=== PATIENT | female | born 1970 | race Caucasian/White ===

== ENCOUNTER → 2016-09-06 | Outpatient (CLI) | payer OTHER ==
[2016-09-06 10:02] LABS: CH 33.2; CHCM 34.5; HCT 43.1 % (34.0-46.0); HDW 2.06; HGB 14.3 gm/dL (11.4-16.0); MCHC 33.2 g/dL (31.0-37.0); MCV 96.5 fL (80.0-100.0); Mean Platelet Volume 6.5; RBC 4.47 m/uL (3.80-5.40); RDW 12.2 % (11.5-15.5)
[2016-09-06 10:10] LABS: Anion Gap 11 mmol/L; Blood Urea Nitrogen 11 mg/dL (7-17); Carbon Dioxide 29 mmol/L (22-30); Chloride 96 mmol/L (98-107); Non-African American GFR(MDRD) >60 (>60 ml/min/1.73 sqM); Potassium 4.1 mmol/L (3.5-5.1); Sodium 136 mmol/L (137-145)
== END | disposition home or self-care (01) ==
LOC: LABWHC1 09:15
PROVIDERS: ATTEND Internal Medicine Interventional Cardiology
DX: Z01.812 Encounter for preprocedural laboratory examination (principal); I73.9 Peripheral vascular disease, unspecified
CPT/HCPCS: 36415; 80051; 82565; 84520; 85027

== ENCOUNTER 2016-09-07 10:27 | Day surgery (SDC) | payer OTHER ==
[2016-09-05 09:39] VITALS: BMI 26.8
[~2016-09-07 10:27] MED LIST: ALPRAZolam 0.25 MG TAB PO PRN; ALPRAZolam 0.5 MG TAB PO PRN; ASPIRIN 325 MG TAB PO STA; SODIUM CHLORIDE 0.9% 1,000 ML in EMPTY BAG 1 BAG IV ONE
[2016-09-07] MEDS ORDERED: ASPIRIN 81 MG CHEW PO ONE (10:53)
[2016-09-07] MEDS ORDERED: ASPIRIN 81 MG CHEW ONE (10:53)
[2016-09-07] MEDS ORDERED: niCARdipine 25 MG/10 ML VIAL ONE (13:35)
[2016-09-07] MEDS ORDERED: LIDOCAINE 2% INJ 20 MG/ML SQ ONE (13:57)
[2016-09-07] MEDS ORDERED: MIDAZOLAM 2 MG/2 ML VIAL IV ONE (13:57)
[2016-09-07] MEDS: fentaNYL (PF) 50 MCG/ML 2 ML AMP IV ONE ×2 (13:57→14:38)
[2016-09-07] MEDS: HEPARIN SODIUM 1,000 UNIT/ML VIAL IV ONE ×2 (14:01→15:59)
[2016-09-07] MEDS: MIDAZOLAM 2 MG/2 ML VIAL IV ONE ×2 (14:38→15:14)
[2016-09-07] MEDS ORDERED: KETOROLAC 30 MG/ML 1 ML VIAL IVP STA (16:17)
[2016-09-07] MEDS ORDERED: SODIUM CHLORIDE 0.9% 1,000 ML IV ONE (16:21)
[2016-09-07] MEDS ORDERED: KETOROLAC 30 MG/ML 1 ML VIAL IVP ONE (16:28)
[2016-09-07] MEDS ORDERED: NICOTINE 21MG/24HR PATCH TRANSDERM PRN (17:03)
[2016-09-07] MEDS ORDERED: ALBUTEROL NEBULIZED 2.5 MG/3 ML INHALATION PRN (17:03)
[2016-09-07] MEDS ORDERED: NITROGLYCERIN SL TABS 0.4 MG TAB SUBLINGUAL PRN (17:03)
[2016-09-07] MEDS ORDERED: CLOPIDOGREL 75 MG TAB PO ONE (17:09)
[2016-09-07] MEDS ORDERED: IODIXANOL 320 MG/ML 100 ML INTRAARTER ONE (17:09)
[2016-09-07] MEDS ORDERED: PROTAMINE SULFATE 10 MG/ML 5 ML VIAL IV ONE (17:09)
[2016-09-07] MEDS ORDERED: CHOLINE PO SCH (18:00)
[2016-09-07] MEDS ORDERED: SODIUM CHLORIDE 0.9% 1,000 ML IV SCH (19:15)
[2016-09-07] MEDS ORDERED: ATORVASTATIN 80 MG TAB PO SCH (21:00)
[2016-09-07] MEDS ORDERED: METOPROLOL TARTRATE 50 MG TAB PO SCH (21:00)
[2016-09-07] MEDS ORDERED: NON-FORMULARY DRUG (Fish Oil/Dha/Epa [Fish Oil 1,200 Mg Fish Oil] 1 EACH) PO SCH (21:00)
[2016-09-07] MEDS ORDERED: Acetaminophen-Codeine 300-30mg TAB PO PRN ×2 (21:26)
[2016-09-07] MEDS: SYMBICORT 160-4.5 MCG INHALER INHALATION SCH (21:45)
[2016-09-07] MEDS ORDERED: AMITRIPTYLINE HCL 10 MG TAB PO SCH ×2 (22:00)
[2016-09-07 23:02] VITALS: RESP 18
[2016-09-08] MEDS ORDERED: Acetaminophen-Codeine 300-30mg TAB PO PRN (02:00)
[2016-09-08 06:12] LABS: Basophils % (A) 0 %; CH 32.4; CHCM 33.3; Eosinophils # (A) 0.1 k/uL (0-0.7); Eosinophils % (A) 1 %; HCT 38.3 % (34.0-46.0); HDW 2.01; HGB 12.4 gm/dL (11.4-16.0); Luc # (Auto) 0.12; Luc % (Auto) 2; Lymphocytes # (A) 1.8 k/uL (1.0-4.8); Lymphocytes % (A) 25 %; MCH 31.5 pg (25.0-35.0); MCHC 32.3 g/dL (31.0-37.0); MCV 97.6 fL (80.0-100.0); Mean Platelet Volume 6.8; Monocytes # (A) 0.4 k/uL (0-1.0); Monocytes % (A) 6 %; Neutrophils # (A) 4.8 k/uL (1.3-7.7); Neutrophils % (A) 66 %; RBC 3.92 m/uL (3.80-5.40); RDW 12.3 % (11.5-15.5); WBC 7.3 k/uL (3.8-10.6); WBC (Perox) 7.74
[2016-09-08 06:26] LABS: Anion Gap 6 mmol/L; Blood Urea Nitrogen 15 mg/dL (7-17); Calcium 9.1 mg/dL (8.4-10.2); Carbon Dioxide 28 mmol/L (22-30); Chloride 103 mmol/L (98-107); Glucose 92 mg/dL (74-99); Non-African American GFR(MDRD) >60 (>60 ml/min/1.73 sqM); Sodium 137 mmol/L (137-145)
[2016-09-08 06:34] VITALS: TEMP 97.1
[2016-09-08] MEDS ORDERED: PANTOPRAZOLE 40 MG TABLET PO SCH (07:30)
--- NOTE | 2016-09-08 07:38 | LTR ---
September 07, 2016 RE: Samantha Pinedo Dear Dr. Marks: Ms. Samantha Pinedo underwent successful stenting of the right and left common iliac arteries with a good angiographic result and without any complication. I want to thank you for allowing me to participate in her care. Please do not hesitate to call if you have any question or concerns. Sincerely, IMELDA LOMBARDI MD
--- NOTE | 2016-09-08 08:01 | PCN ---
DATE OF PROCEDURE: 09/07/2016 PERCUTANEOUS PERIPHERAL INTERVENTION PERFORMING PHYSICIAN: Ruben Vega MD, olive packer. PROCEDURE PERFORMED: 1. Selective bilateral common iliac artery angiogram. 2. 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 3. Successful kissing stents of bilateral common iliac arteries using on the right side two 6.0 x 39 balloon expandable stent and on the left side 6.0 x 59 balloon expandable stent as well with good angiographic results. 4. Selective bilateral common femoral arteries angiogram. INDICATION: This is a pleasant 45-year-old female patient who is known to have coronary artery disease and prior coronary artery stenting who was also experiencing bilateral lower extremity discomfort consistent with intermittent claudication. She underwent a peripheral angiogram which showed occluded right common iliac artery and critical left common iliac artery. I discussed with her the option between surgical versus percutaneous revascularization and she would like to proceed with percutaneous revascularization. APPROACH: Right and left common femoral arteries. COMPLICATIONS: None. LEVEL OF SEDATION: Moderate with a sedation length of 3 hours and 2 minutes. PROCEDURE DESCRIPTION: After obtaining an informed consent, the patient was brought to the cardiac farm laborer. Right common femoral artery was cannulated using micropuncture technique. The micropuncture wire passed easily, then I placed a 5 Portuguese 23 cm Brite tip sheath in the right common femoral artery. At the left common femoral artery, I did place using percutaneous technique as well a 6 Portuguese 23 cm Brite tip sheath as well. At that point, anticoagulation was initiated using heparin and the patient was given a weight-based heparin. After that, I was able to cross the critical lesion involving the left common iliac artery using an 0.035 Glidewire. I attempted crossing the LONGWALL HEADGATE OPERATOR of the right common iliac artery using an 0.014 Astato wire and I was unable to then using an 0.018 V18 wire, and I was unable to and then using an 0.035 Glidewire, and I was unable to where I ended in the subintimal space. 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 At that point, I was able to advance the Glidewire all the way to the common femoral artery. Then I did advance an 0.035 catheter, and I did inject it to prove that I was in the true lumen. After that, I did balloon angioplasty from the left side of the right common iliac artery using a 4.0 balloon. I tried again to advance 0.035 Glidewire in retrograde fashion from the right side and I was unable to do it. At that point, I decided to go ahead and snare a wire placed in the sheath on the left side from the right groin. I was able to snare an 0.018 Victory 18 wire. After that, I did advance an 0.035 catheter over Victory 18 wire and then I was able to redirect my wire into true lumen to the aorta. After that, I did deploy 2 balloon expandable stents on the right and one balloon expandable stent on the left. On the right, I did deploy 6.0 x 39 and another 6.0 x 39 balloon expandable stents. On the left side, I did deploy 6.0 x 59 mm balloon expandable stent. The following angiogram showed good angiographic results. Subsequently, I did exchange my 23 cm Brite tip sheath into 11 cm regular sheath using about 0.035 advantage wire. I did finally selective bilateral common femoral artery angiogram. The patient still has moderate to severe lesion involving the right external iliac artery and just by the inguinal ligament. I would wait and see if her symptoms will improve, then there is no need for any to be done. The patient tolerated the procedure very well. POSTPROCEDURE MANAGEMENT: 1. Dual antiplatelet therapy. 2. Risk factor modifications. 3. Smoking cessation and the patient stop smoking completely. 4. Follow up with the patient.
[2016-09-08] MEDS ORDERED: RX INFO: IV CONTRAST WAS GIVEN 1 EACH MISC MISCELLANE PRN (08:31)
[2016-09-08] MEDS ORDERED: LISINOPRIL 10 MG TAB PO SCH (09:00)
[2016-09-08] MEDS ORDERED: NON-FORMULARY DRUG (Lisdexamfetamine Dimesylate [Vyvanse] 50 MG) PO SCH (09:00)
[2016-09-08] MEDS ORDERED: ECHINACEA 400 MG PO SCH (09:00)
[2016-09-08] MEDS ORDERED: METOPROLOL TARTRATE 25 MG TAB PO SCH (09:00)
[2016-09-08] MEDS ORDERED: NON-FORMULARY DRUG (Ascorbic Acid [Vitamin C] 1,000 MG) PO SCH (09:00)
[2016-09-08] MEDS ORDERED: ASPIRIN 81 MG CHEW PO SCH (09:00)
[2016-09-08] MEDS ORDERED: CHOLECALCIFEROL 1,000 UNIT TAB PO SCH (09:00)
[2016-09-08] MEDS ORDERED: CHLORTHALIDONE 25 MG TAB PO SCH (09:00)
[2016-09-08] MEDS ORDERED: CLOPIDOGREL 75 MG TAB PO SCH ×2 (09:00→21:00)
[2016-09-08] MEDS: SYMBICORT 160-4.5 MCG INHALER INHALATION SCH ×2 (09:09→10:32)
--- NOTE | 2016-09-08 09:30 | CT ---
EXAMINATION TYPE: CT angio abdomen pelvis DATE OF EXAM: 09/08/2016 9:17 AM COMPARISON: NONE HISTORY: Pain post blilateral iliac stents CT DLP: 1327.5 mGycm CONTRAST: CTA abdominal aorta with 3-D reconstruction is performed without Oral Contrast and with IV Contrast, patient injected with 100 mL of Omnipaque 350. Contrast CTA of the abdominal aorta was performed from the lung bases through the base of the pelvis . 3-D reconstruction imaging obtained at a separate workstation. CONTRAST CT ABDOMEN AND PELVIS ABDOMENAL AORTA: No evidence for abdominal aortic aneurysm. No dissection. Bilateral common iliac st ents are in place both of which appear to be patent. There is appropriate opacification of the internet consultant al and external iliac arteries as well as the proximal common femoral arteries. No stenosis appreciat ed within the [id number]. Mild atheromatous change distal abdominal aorta. Aortic branch vessels a re patent. Lung bases: Linear basilar atelectasis or scarring. LIVER/GB-1.1 cm cyst right hepatic lobe. Gallbladder is unremarkable. PANCREAS- No significant abnormality is seen. SPLEEN- No significant abnormality is seen. ADRENALS-hyperplasia is seen of the adrenals. KIDNEYS/BLADDER- No significant abnormality is seen. BOWEL- No Significant abnormality GENITAL ORGANS: No gross abnormality seen. LYMPH NODES- No greater than 1cm abdominal or pelvic lymph nodes areappreciated. OSSEOUS STRUCTURES- No significant abnormality is seen. OTHER- No significant abnormality is seen. IMPRESSION- Bilateral common iliac stents are in place both of which appear to be patent. There is appropriate o pacification of the internal and external iliac arteries as well as the proximal common femoral arter ies. No stenosis appreciated within the [id number].
[2016-09-08] MEDS ORDERED: MULTIVITAMINS, THERA 1 EACH TAB PO SCH (12:00)
[2016-09-08 14:20] VITALS: BP 111/69; PULSE 92
--- NOTE | 2016-09-08 15:03 | IR ---
EXAMINATION TYPE: IR stent intravas non coronary DATE OF EXAM: 09/07/2016 5:32 PM COMPARISON: NONE HISTORY: Peripheral vascular occlusive disease. Fluoroscopy was provided to the referring clinician. See dictated report from cardiology.
--- NOTE | 2016-09-09 09:46 | DS ---
DATE OF ADMISSION: 09/07/2016 DATE OF DISCHARGE: 09/08/2016 BRIEF HISTORY: This is a pleasant 45-year-old female patient who is known to have severe underlying PAD with occluded bilateral common iliac arteries who was admitted to the hospital on September 07, 2016 and underwent successful recanalization of both iliac arteries with a good angiographic result and without any complication from bilateral groin approach. The procedure was performed with a good angiographic result and without any complication. On follow up with the patient both the groins seem to be soft and nontender and without any bruises. The patient is going to be discharged home on dual antiplatelet therapy and I will follow up with the patient as an outpatient in the office.
== END 2016-09-08 15:32 | disposition home or self-care (01) ==
LOC: CATHCVL 10:27 → 6SEL 16:58 → CATHCVL 09-08 15:32
PROVIDERS: ATTEND Internal Medicine Interventional Cardiology
DX: I70.211 Atherosclerosis of native arteries of extremities with intermittent claudication, right leg (principal); I10 Essential (primary) hypertension; E78.5 Hyperlipidemia, unspecified; Z82.49 Family history of ischemic heart disease and other diseases of the circulatory system; I25.10 Atherosclerotic heart disease of native coronary artery without angina pectoris; Z95.5 Presence of coronary angioplasty implant and graft; Z87.891 Personal history of nicotine dependence; Z79.02 Long term (current) use of antithrombotics/antiplatelets; Z79.82 Long term (current) use of aspirin; Z79.51 Long term (current) use of inhaled steroids; Z79.899 Other long term (current) drug therapy; Z88.1 Allergy status to other antibiotic agents; Z88.0 Allergy status to penicillin; Z88.8 Allergy status to other drugs, medicaments and biological substances
CPT/HCPCS: 99153 ×11; 99152; 94640 ×2; 37221; 85347; 80048; 85025; 81025; 74174; C1769 ×7; C1894 ×2; C1876; C1887; C1874; J2001; J2250; J2720; Q9967 ×2; J3010; J1885; J1644; 37223

== ENCOUNTER → 2016-10-05 | Outpatient (CLI) | payer OTHER ==
--- NOTE | 2016-10-05 17:22 | US ---
EXAMINATION TYPE: US thyroid st tissue head/neck DATE OF EXAM: 10/05/2016 COMPARISON: NONE CLINICAL HISTORY: Goiter E04.9. Thyroid US 20 years ago, recently changed doctors, follow up exam GLAND SIZE: Right Lobe: 4.6 x 1.2 x 1.8 cm Overall Parenchyma: homogenous Left Lobe: 4.2 x 1.3 x 1.5 cm Overall Parenchyma: homogeneous Isthmus Thickness: 0.4 cm NODULES RIGHT: # of nodules measured on right: 0 LEFT: # of nodules measured on left: 0 ISTHMUS: # of nodules measured in the isthmus: 0 Bilateral neck scanned, no evidence of lymphadenopathy. IMPRESSION: BORDERLINE THYROMEGALY.
== END | disposition home or self-care (01) ==
LOC: RADUSWWP 15:48
PROVIDERS: ATTEND Family Medicine
DX: E01.0 Iodine-deficiency related diffuse (endemic) goiter (principal)
CPT/HCPCS: 76536

== ENCOUNTER → 2019-04-09 | Outpatient (CLI) | payer OTHER ==
[2019-04-09 12:23] LABS: HCT 44.5 % (34.0-46.0); HGB 14.9 gm/dL (11.4-16.0); MCHC 33.6 g/dL (31.0-37.0); MCV 95.2 fL (80.0-100.0); Mean Platelet Volume 8.3; Platelet Count 348 k/uL (150-450); RBC 4.67 m/uL (3.80-5.40); RDW 12.7 % (11.5-15.5); WBC 10.2 k/uL (3.8-10.6)
[2019-04-09 12:28] LABS: African American GFR (CKD) >90 (>60 ml/min/1.73 sqM); Anion Gap 10 mmol/L; Blood Urea Nitrogen 9 mg/dL (7-17); Carbon Dioxide 24 mmol/L (22-30); Chloride 107 mmol/L (98-107); Non-African American GFR(CKD) >90 (>60 ml/min/1.73 sqM); Potassium 4.2 mmol/L (3.5-5.1); Sodium 141 mmol/L (137-145)
== END | disposition home or self-care (01) ==
LOC: LABPAT 12:00
PROVIDERS: ATTEND Internal Medicine Interventional Cardiology
DX: Z01.812 Encounter for preprocedural laboratory examination (principal); I70.213 Atherosclerosis of native arteries of extremities with intermittent claudication, bilateral legs
CPT/HCPCS: 36415; 80051; 82565; 84520; 85027

== ENCOUNTER → 2019-04-12 | Day surgery (SDC) | payer OTHER ==
[2019-04-08 16:01] VITALS: BMI 26.0
[~2019-04-12] MED LIST changes: -ALPRAZolam 0.5 MG TAB PO PRN; +ASPIRIN 325 MG TAB PO ONE; -ASPIRIN 325 MG TAB PO STA; +HEPARIN SODIUM 1,000 UN/ML (10ML VL) IV ONE; +HYDROmorphone 1 MG/ML 1 ML SYRINGE IVP ONE; +IOPAMIDOL-300 100ML BTL INJ ONE; +IOPAMIDOL-300 50ML BTL INJ ONE; +LIDOCAINE 1% INJ 10MG/ML (20 ML MDV) SQ ONE; +MIDAZOLAM 2 MG/2 ML VIAL IVP ONE; +SODIUM CHLORIDE 0.9% 1,000 ML IV SCH; +VERAPAMIL SYRINGE (5 MG/10 ML) INTRAARTER ONE
[2019-04-12 07:09] VITALS: RESP 18; TEMP 98
--- NOTE | 2019-04-12 08:33 | AN ---
ANGIOGRAPHY REPORT ABDOMINAL AORTOGRAM AND BILATERAL LOWER EXTREMITIES RUNOFF: PERFORMING PHYSICIAN: Ruben Veag MD. PROCEDURE PERFORMED: 1. Abdominal aortogram. 2. Bilateral lower extremities runoff. INDICATION: This is a 48-year-old female patient with coronary artery disease and prior stenting as well as peripheral arterial disease and prior bilateral iliac stenting was seen in the office recently where she was experiencing bilateral lower extremities intermittent claudication, mainly in the buttock area. On physical examination, I could not feel any femoral pulses bilaterally. She was brought today to undergo an aortogram with runoff. APPROACH: Right radial artery. COMPLICATION: None. LEVEL OF SEDATION: Moderate with sedation length of 16 minutes. PROCEDURE DESCRIPTION: After obtaining an informed consent, the patient was brought to the cardiac open hearth furnace laborer. The right radial artery was cannulated using micropuncture technique, the micropuncture wire passed easily, then I placed a 5-Mongolian sheath. I gave the patient 2 mg of verapamil IA and 8000 units of heparin IV. Subsequently, I did an abdominal aortogram and bilateral lower extremities runoff using 5-Mongolian pigtail catheter which was initially placed at the level of the renal arteries, then it was advanced into above the bifurcation of the aorta to right and left common iliac artery. The procedure was completed without any complication. SELECTIVE PERIPHERAL ANGIOGRAM: 1. The aorta appeared to have mild disease only. 2. Renal arteries: The right and left renal arteries appeared to be patent. 3. Common iliac arteries: The right and left common iliac arteries are stented and both the stents are occluded. 4. Internal iliac arteries: Both internal iliac arteries appeared to be patent. 5. External iliac arteries: Both external iliac arteries appeared to be diseased. 6. Femoral arteries: Both femoral arteries appeared to be patent. 7. Profunda: Both profunda appeared to be patent. 8. SFA: Both SFA appeared to be patent. 9. Popliteal: Both popliteal appeared to be patent. 10.Below the knee: There are 2 vessel runoff below the knee with anterior tibial, posterior tibial and peroneal and the anterior tibial was not well opacified. CONCLUSION: 1. Severe aortoiliac disease with occluded bilateral common iliac arteries, which seem to be in-stent occlusion. 2. Mild femoral-popliteal disease. 3. Two vessel runoff below the knee bilaterally with posterior tibial and peroneal. POSTPROCEDURE MANAGEMENT: 1. The patient is going to be discharged home today. 2. I will discuss with the patient the option between either percutaneous revascularization or surgical revascularization with aortobifemoral. MICHAEL / PAMELAN: [id number] /
--- NOTE | 2019-04-12 10:15 | IR ---
EXAMINATION TYPE: IR angio abdominal w runoff DATE OF EXAM: 04/12/2019 CLINICAL HISTORY: Peripheral vascular disease. Leg pain. TECHNIQUE: Fluoroscopy. COMPARISON: None. FINDINGS: Fluoroscopic guidance was provided during abdominal angiogram with lower extremity runoff procedure performed by Dr. Vega. A total of 1.8 minutes of fluoroscopic time was utilized during the procedure and 6 cine runs are acquired. Images acquired show access via right upper extremity with c ontrast injection of aorta and iliac vessels as well as lower extremity vessels. Please refer to proc edure note. IMPRESSION: As Above.
[2019-04-12 13:09] VITALS: BP 118/76; PULSE 76
== END ==
LOC: CATHCVL 06:35
PROVIDERS: ATTEND Internal Medicine Interventional Cardiology
DX: I70.213 Atherosclerosis of native arteries of extremities with intermittent claudication, bilateral legs (principal); T82.856A Stenosis of peripheral vascular stent, initial encounter; I25.10 Atherosclerotic heart disease of native coronary artery without angina pectoris; I10 Essential (primary) hypertension; E78.5 Hyperlipidemia, unspecified; F17.210 Nicotine dependence, cigarettes, uncomplicated; Z79.82 Long term (current) use of aspirin; Z79.51 Long term (current) use of inhaled steroids; Z79.899 Other long term (current) drug therapy; Z88.0 Allergy status to penicillin; Z88.1 Allergy status to other antibiotic agents; Z88.8 Allergy status to other drugs, medicaments and biological substances; Z95.5 Presence of coronary angioplasty implant and graft; Z82.49 Family history of ischemic heart disease and other diseases of the circulatory system; Y83.9 Surgical procedure, unspecified as the cause of abnormal reaction of the patient, or of later complication, without mention of misadventure at the time of the procedure
CPT/HCPCS: 36200; 75625; 75716; 81025; C1769 ×3; J2250; J2001; J1644; J1170; Q9967 ×2

== ENCOUNTER → 2019-04-22 | Outpatient (CLI) | payer OTHER ==
[2019-04-22 16:02] LABS: Chol/HDL Ratio 2.27; LDL Cholesterol,Calculated 74.6 mg/dL (0.0-131.0); VLDL Calculation 18.4 mg/dL (5.00-40.00)
== END | disposition home or self-care (01) ==
LOC: LABWHC1 10:45
PROVIDERS: ATTEND Nurse Practitioner Adult Health
DX: E78.5 Hyperlipidemia, unspecified (principal)
CPT/HCPCS: 36415; 80061; 83721

== ENCOUNTER 2020-04-22 06:41 | Observation (INO) | payer OTHER ==
[2020-04-13 15:36] VITALS: BMI 25.8
[~2020-04-22 06:41] MED LIST changes: -ASPIRIN 325 MG TAB PO ONE; +ASPIRIN 325 MG TAB PO PRN; -HEPARIN SODIUM 1,000 UN/ML (10ML VL) IV ONE; -HYDROmorphone 1 MG/ML 1 ML SYRINGE IVP ONE; -IOPAMIDOL-300 100ML BTL INJ ONE; -IOPAMIDOL-300 50ML BTL INJ ONE; -LIDOCAINE 1% INJ 10MG/ML (20 ML MDV) SQ ONE; -MIDAZOLAM 2 MG/2 ML VIAL IVP ONE; -SODIUM CHLORIDE 0.9% 1,000 ML IV SCH; -VERAPAMIL SYRINGE (5 MG/10 ML) INTRAARTER ONE
[2020-04-22] MEDS ORDERED: SODIUM CHLORIDE 0.9% 1,000 ML IV ONE (07:05)
[2020-04-22 07:12] LABS: Glucose,Whole Blood 102 mg/dL (75-99)
[2020-04-22 07:17] LABS: Basophils # (A) 0.1 k/uL (0-0.2); Basophils % (A) 1 %; Eosinophils # (A) 0.3 k/uL (0-0.7); Eosinophils % (A) 3 %; HGB 14.6 gm/dL (11.4-16.0); Lymphocytes # (A) 3.8 k/uL (1.0-4.8); Lymphocytes % (A) 34 %; MCH 30.9 pg (25.0-35.0); MCHC 32.5 g/dL (31.0-37.0); MCV 95.2 fL (80.0-100.0); Mean Platelet Volume 7.4; Monocytes # (A) 0.5 k/uL (0-1.0); Monocytes % (A) 4 %; Neutrophils # (A) 6.1 k/uL (1.3-7.7); Neutrophils % (A) 56 %; Platelet Count 405 k/uL (150-450); RBC 4.72 m/uL (3.80-5.40); RDW 13.4 % (11.5-15.5)
[2020-04-22 07:23] LABS: African American GFR (CKD) >90 (>60 ml/min/1.73 sqM); Anion Gap 4 mmol/L; Blood Urea Nitrogen 17 mg/dL (7-17); Calcium 9.4 mg/dL (8.4-10.2); Carbon Dioxide 28 mmol/L (22-30); Chloride 108 mmol/L (98-107); Glucose 94 mg/dL (74-99); Non-African American GFR(CKD) >90 (>60 ml/min/1.73 sqM); Potassium 4.2 mmol/L (3.5-5.1); Sodium 140 mmol/L (137-145)
[2020-04-22] MEDS: MIDAZOLAM 2 MG/2 ML VIAL IVP ONE ×2 (08:02→08:11)
[2020-04-22] MEDS ORDERED: HYDROmorphone 1 MG/ML 1 ML SYRINGE IVP ONE (08:05)
[2020-04-22] MEDS ORDERED: LIDOCAINE 1% INJ 10MG/ML (20 ML MDV) SQ ONE (08:06)
[2020-04-22] MEDS: HEPARIN SODIUM 1,000 UN/ML (10ML VL) IV ONE ×2 (08:10→08:50)
[2020-04-22] MEDS: fentaNYL (PF) 50 MCG/ML 2 ML AMP IVP ONE ×3 (08:52→10:06)
[2020-04-22] MEDS ORDERED: NITROGLYCERIN 1000MCG/10ML SYRINGE INTRAARTER ONE (09:10)
[2020-04-22] MEDS ORDERED: IOPAMIDOL-250 100ML BTL INTRAARTER ONE (09:32)
[2020-04-22] MEDS ORDERED: IOPAMIDOL-250 50ML BTL INTRAARTER ONE (09:40)
[2020-04-22] MEDS ORDERED: CLOPIDOGREL 75 MG TAB PO ONE (10:06)
[2020-04-22] MEDS ORDERED: IOPAMIDOL-300 50ML BTL INJ ONE (10:06)
[2020-04-22] MEDS ORDERED: IBUPROFEN 800 MG TAB PO PRN (10:39)
[2020-04-22] MEDS ORDERED: NITROGLYCERIN SL TABS 0.4 MG TAB SUBLINGUAL PRN (10:39)
[2020-04-22] MEDS ORDERED: ALBUTEROL NEBULIZED 2.5 MG/3 ML INHALATION PRN (10:39)
[2020-04-22] MEDS ORDERED: SODIUM CHLORIDE 0.9% 1,000 ML in EMPTY BAG 1 BAG IV SCH (10:45)
[2020-04-22] MEDS ORDERED: ONDANSETRON 4 MG/2 ML VIAL ONE (11:52)
[2020-04-22] MEDS ORDERED: ACETAMINOPHEN TAB 325 MG TAB ONE (14:29)
[2020-04-22] MEDS ORDERED: ACETAMINOPHEN TAB 325 MG TAB PO PRN (14:31)
--- NOTE | 2020-04-22 15:02 | AN ---
ANGIOGRAPHY REPORT PERCUTANEOUS PERIPHERAL INTERVENTION: DATE OF SERVICE: April 22, 2020. PERFORMING PHYSICIAN: Ruben Vega MD. PROCEDURE PERFORMED: 1. Successful stenting of the right and left common iliac arteries using iCAST 7.0 x 59 mm with an excellent angiographic result. 2. Successful stenting of the right and left external iliac arteries using 8 x 60 mm self expandable stent with an excellent angiographic results. 3. Intravascular ultrasound (IVUS) of the bilateral common and external iliac arteries. 4. Selective angiogram of the bilateral common and external iliac arteries. 5. Right lower extremity angiogram. INDICATION: This is a pleasant 49-year-old female patient with coronary artery disease and peripheral arterial disease who underwent in the past stenting of the right and left common iliac arteries for chronic total occlusion and symptoms of intermittent claudication was experiencing symptoms of intermittent claudication again. She underwent an angiogram recently and that revealed occluded bilateral iliacs. She was brought today for intervention. APPROACH: Right and left common femoral arteries. COMPLICATION: None. LEVEL OF SEDATION: Moderate with sedation length of 155 minutes. PROCEDURE DESCRIPTION: After obtaining an informed consent, the patient was brought to the cardiac director of labor relations. The right and left common femoral arteries were cannulated using micropuncture technique under ultrasound guidance, the micropuncture wire passed easily then I placed a 4-Emirati sheath in the right and left common femoral arteries. At that point, anticoagulation was initiated using heparin and the patient was initially given a total of 6000 units of heparin IV with continuous ACT monitoring throughout the procedure. Please note that the patient given additional 2000 units of heparin because the ACT was around 190. Subsequently, I did cross the chronic total occlusion of the right and left common iliac arteries using a 0.035 stiff Glidewire with the backup support of 0.035 CXI catheter. I did inject contrast in the aorta through the catheter to prove that I was in the true lumen. Subsequently I did exchange my 0.035 wire into 0.014 wire preparing for intravascular ultrasound which revealed bilaterally that there was no component of thrombus with the diameter of the iliac about 7-8 mm. I did after that position my 0.035 wire in the aorta. I did after that exchange my 4- Emirati 11 cm sheath into 7-Emirati 21 cm sheath. Balloon angioplasty was achieved using 6 mm balloon. Subsequently, I placed 2 iCAST stents. Both of them were 7 x 59 mm. Both the stents were positioned in a kissing technique and deployed simultaneously. The following angiogram showed good angiographic results in the stented segment. In the external iliac arteries, distal to the stented segment, there was severe narrowing and because of that I decided to do balloon angioplasty. I did balloon angioplasty initially using 6 mm balloon. The initial angiogram looks good, but subsequently the artery again and because of that I decided to stent that segment. So on the left side, I placed 8 x 60 mm self- expandable stent and also on the right side 8 x 60 mm self-expandable stent. Both stents were overlapped with the previous balloon expandable stents. Final balloon angioplasty was achieved and showed excellent angiographic results. Because there was a component of thrombus on the right side, the patient was experiencing pain and because we did not feel good pulse on the right side, I decided to do a right lower extremity angiogram which showed good results. After that I did exchange my 7-Emirati 21 cm into 7-Emirati 11 cm. Finally, the procedure was completed without any complication. POSTPROCEDURE MANAGEMENT: 1. Smoking cessation. 2. Dual anti-platelet therapy. 3. Risk factor modifications. 4. Follow up with the patient. MMODL / IJN: [id number] /
[2020-04-22] MEDS ORDERED: ONDANSETRON 4 MG/2 ML VIAL IVP PRN (16:48)
[2020-04-22 18:19] LABS: Glucose,Whole Blood 95 mg/dL (75-99)
[2020-04-22] MEDS: SYMBICORT 80-4.5 MCG INHALER INHALATION SCH (20:15)
[2020-04-22] MEDS ORDERED: AMITRIPTYLINE HCL 10 MG TAB PO SCH (21:00)
[2020-04-22] MEDS ORDERED: NON FORMULARY DRUG (Fish Oil/Dha/Epa [Fish Oil 1,200 Mg Fish Oil] 1 EACH Capsule) PO SCH (21:00)
[2020-04-22] MEDS ORDERED: NON FORMULARY DRUG (Ubidecarenone [Co Q-10] 100 MG Capsule) PO SCH (21:00)
[2020-04-22] MEDS ORDERED: ATORVASTATIN 80 MG TAB PO SCH (21:00)
[2020-04-22] MEDS: METOPROLOL TARTRATE 25 MG TAB PO SCH (21:35)
[2020-04-23] MEDS: SYMBICORT 80-4.5 MCG INHALER INHALATION SCH (07:36)
[2020-04-23 08:45] VITALS: BP 147/84; PULSE 94; RESP 18; TEMP 98
[2020-04-23] MEDS ORDERED: ASCORBIC ACID 500 MG TAB PO SCH (09:00)
[2020-04-23] MEDS ORDERED: ASPIRIN 325 MG TAB PO SCH (09:00)
[2020-04-23] MEDS ORDERED: CHOLECALCIFEROL 1,000 UNIT TAB PO SCH (09:00)
[2020-04-23] MEDS ORDERED: LISDEXAMFETAMINE DIMESYLATE 50 MG PO SCH (09:00)
[2020-04-23] MEDS ORDERED: PANTOPRAZOLE 40 MG TABLET PO SCH (09:00)
[2020-04-23] MEDS ORDERED: NON FORMULARY DRUG (Turmeric Root Extract [Turmeric] 500 MG Capsule) PO SCH (09:00)
[2020-04-23] MEDS ORDERED: LACTOBACILLUS ACIDOPH & BULGAR 1 EACH PACKET PO SCH (09:00)
[2020-04-23] MEDS ORDERED: ECHINACEA 400 MG PO SCH (09:00)
[2020-04-23] MEDS ORDERED: lisinopriL 5 MG TAB PO SCH (09:00)
[2020-04-23] MEDS ORDERED: MULTIVITAMINS, THERA 1 EACH TAB PO SCH (09:00)
[2020-04-23 09:12] LABS: Basophils # (A) 0.1 k/uL (0-0.2); Basophils % (A) 0 %; Eosinophils # (A) 0.3 k/uL (0-0.7); Eosinophils % (A) 2 %; HCT 45.1 % (34.0-46.0); HGB 14.4 gm/dL (11.4-16.0); Lymphocytes % (A) 15 %; MCH 31.2 pg (25.0-35.0); MCV 97.4 fL (80.0-100.0); Mean Platelet Volume 7.3; Monocytes # (A) 0.8 k/uL (0-1.0); Monocytes % (A) 6 %; Neutrophils # (A) 10.5 k/uL (1.3-7.7); Neutrophils % (A) 77 %; Platelet Count 289 k/uL (150-450); RBC 4.63 m/uL (3.80-5.40); RDW 13.6 % (11.5-15.5); WBC 13.7 k/uL (3.8-10.6)
[2020-04-23] MEDS: METOPROLOL TARTRATE 25 MG TAB PO SCH (09:21)
[2020-04-23 09:36] LABS: African American GFR (CKD) >90 (>60 ml/min/1.73 sqM); Anion Gap 6 mmol/L; Blood Urea Nitrogen 9 mg/dL (7-17); Calcium 9.4 mg/dL (8.4-10.2); Carbon Dioxide 30 mmol/L (22-30); Chloride 105 mmol/L (98-107); Glucose 123 mg/dL (74-99); Non-African American GFR(CKD) >90 (>60 ml/min/1.73 sqM); Sodium 141 mmol/L (137-145)
--- NOTE | 2020-04-23 10:15 | IR ---
EXAMINATION TYPE: IR charter boat captain femoral popliteal DATE OF EXAM: 04/22/2020 COMPARISON: NONE HISTORY: Fluoroscopy time. Fluoroscopy was provided to the referring clinician.
--- NOTE | 2020-04-24 00:03 | DS ---
DISCHARGE SUMMARY BRIEF HISTORY: This is a very pleasant 49 year old female patient who underwent yesterday successful, chronic total occlusion of bilateral iliac arteries with excellent angiographic results and without any complications. The procedure was performed from the right and left groin. The patient was seen this morning. She does have excellent bilateral femoral pulses. Also palpable pedal pulses. She is going to be discharged home on dual anti-platelet therapy along with statin. I will follow up with the patient in a week in the office. MMELYSE / IJN: [id number] /
== END 2020-04-23 10:16 | disposition home or self-care (01) ==
LOC: CATHCVL 06:41 → 3SCARD 10:05 → CATHCVL 17:28
PROVIDERS: ADMIT Internal Medicine Interventional Cardiology; ATTEND Internal Medicine Interventional Cardiology
DX: I70.213 Atherosclerosis of native arteries of extremities with intermittent claudication, bilateral legs (principal); I70.92 Chronic total occlusion of artery of the extremities; Z95.820 Peripheral vascular angioplasty status with implants and grafts; Z95.5 Presence of coronary angioplasty implant and graft; I10 Essential (primary) hypertension; E78.5 Hyperlipidemia, unspecified; F17.210 Nicotine dependence, cigarettes, uncomplicated; Z82.49 Family history of ischemic heart disease and other diseases of the circulatory system; Z79.82 Long term (current) use of aspirin; Z79.51 Long term (current) use of inhaled steroids; Z79.899 Other long term (current) drug therapy; Z88.1 Allergy status to other antibiotic agents; Z88.0 Allergy status to penicillin; Z88.8 Allergy status to other drugs, medicaments and biological substances
CPT/HCPCS: 94640; 37221; 37223; 85347; 37252; 37253; 80048 ×2; 85025 ×2; 81025; G0378 ×2; C1769 ×5; C1894 ×3; C1876 ×2; C1874; C1725; C1753; J2250; J2405; J2001; J3010; J1644; J1170; Q9966; Q9967